=== PATIENT | female | born 1945 | race Caucasian/White ===

== ENCOUNTER → 2019-01-21 | Outpatient (CLI) | payer MEDICARE ==
[2019-01-25 15:07] LABS: HPV 16 Negative (Negative); HPV 18 Negative (Negative); HPV OTHER HR TYPES Negative (Negative)
== END | disposition home or self-care (01) ==
LOC: LAB SHORT 15:35 → LAB 15:35
PROVIDERS: Nurse Practitioner Women's Health
DX: Z12.4 Encounter for screening for malignant neoplasm of cervix (principal)
CPT/HCPCS: 87624; G0123

== ENCOUNTER → 2020-11-02 | Outpatient (CLI) | payer MEDICARE ==
[~2020-11-02] MED LIST: AMLO5 PO; ATOR20 PO; CIPR500 PO; CODACE30 PO; CYCL10; ELIQUIS5 MG PO; FERSU300; FURO40 PO; METO50ER PO; PRED20 PO; Prinivil10 MG PO; Pyridium100 MG; Vitamin D2000 UNIT PO
== END | disposition home or self-care (01) ==
LOC: LAB 11:00
DX: N30.00 Acute cystitis without hematuria (principal)
CPT/HCPCS: 87086

== ENCOUNTER 2020-11-05 07:30 | Emergency (ER) | payer MEDICARE ==
[~2020-11-05] VITALS: Ht 162.6 cm; Wt 63.5 kg
[2020-11-05] MEDS ORDERED: CIPR500 PO (07:52)
[2020-11-05] MEDS ORDERED: Pyridium100 MG (07:52)
[2020-11-05] MEDS ORDERED: CYCL10 (07:52)
[2020-11-05] MEDS ORDERED: Prinivil10 MG PO (07:53)
[2020-11-05] MEDS ORDERED: PRED20 PO (07:53)
[2020-11-05] MEDS ORDERED: AMLO5 PO (07:53)
[2020-11-05] MEDS ORDERED: METO50ER PO (07:53)
[2020-11-05] MEDS ORDERED: FURO40 PO (07:54)
[2020-11-05] MEDS ORDERED: FERSU300 (07:54)
[2020-11-05] MEDS ORDERED: Vitamin D2000 UNIT PO (07:54)
[2020-11-05] MEDS ORDERED: ATOR20 PO (07:54)
[2020-11-05] MEDS ORDERED: ELIQUIS5 MG PO (07:54)
[2020-11-05 08:25] LABS: BASOPHILS ABSOLUTE AUTO 0.01 K/mm3 (0.00-0.23); BASOPHILS PERCENT AUTO 0 % (0-2); EOSINOPHILS ABSOLUTE AUTO 0.01 K/mm3 (0.00-0.68); EOSINOPHILS PERCENT AUTO 0 % (0-6); Hematocrit 39.8 % (33.0-51.0); Hemoglobin 13.3 g/dL (11.5-16.0); IMMATURE GRAN ABSOLUTE AUTO 0.01 K/mm3 (0.00-0.10); IMMATURE GRAN PERCENT AUTO 0 % (0-1); LYMPHOCYTES ABSOLUTE AUTO 0.78 K/mm3 (0.84-5.20); LYMPHOCYTES PERCENT AUTO 10 % (21-46); MONOCYTES ABSOLUTE AUTO 0.31 K/mm3 (0.16-1.47); MONOCYTES PERCENT AUTO 4 % (4-13); Mean Corpuscular HGB 32.4 pg (26.0-34.0); Mean Corpuscular HGB Conc 33.4 g/dL (31.5-36.5); Mean Corpuscular Volume 97 fL (80-100); Mean Platelet Volume 9.6 fL (9.1-12.4); NEUTROPHILS ABSOLUTE AUTO 6.39 K/mm3 (1.96-9.15); NEUTROPHILS PERCENT AUTO 85 % (41-73); Platelet Count 233 K/mm3 (150-400); RDW Coefficient Variation 13.6 % (11.7-14.2); RDW Standard Deviation 49.1 fL (35.1-46.3); Red Blood Cell Count 4.11 M/mm3 (3.80-5.20); White Blood Cell Count 7.51 K/mm3 (4.00-11.30)
[2020-11-05 08:45] LABS: Albumin, Blood 3.9 g/dL (3.4-5.0); Albumin/Globulin Ratio 1.1 (0.8-1.8); Bilirubin, Total 0.7 mg/dL (0.1-1.0); Bun/Creatinine Ratio 19.5 (12.0-20.0); Calcium, Blood 9.4 mg/dL (8.5-10.1); Creatinine, Blood 1.59 mg/dL (0.40-1.00); Globulin, Blood 3.7 g/dL (2.2-4.0); Total Protein, Blood 7.6 g/dL (6.4-8.2)
[2020-11-05 09:05] LABS: Source, Urine Clean Catch
[2020-11-05 09:11] LABS: Appearance, Urine Hazy (Clear); Blood, Urine 2+ (Neg); Color, Urine Amber (P-Yellow); Glucose Qualitative, Urine Neg (Neg); Ketones, Urine 1+ (Neg); Leukocyte Esterase, Urine 3+ (Neg); Nitrite, Urine Pos (Neg); Protein, Urine 3+ (Neg); Urobilinogen, Urine 3+ (Normal)
[2020-11-05 09:22] LABS: Bilirubin, Urine 3+ (Neg)
[2020-11-05 09:23] LABS: White Blood Cells, Urine 25-50 /hpf (0-5)
[2020-11-05 09:24] LABS: Bacteria Many /hpf; Squamous Epithelial Cells Mod /hpf (Few)
[2020-11-05] MEDS ORDERED: CODACE30 PO (09:53)
== END 2020-11-05 10:02 | disposition home or self-care (01) ==
LOC: ER 07:30
PROVIDERS: Emergency Medicine
DX: N39.0 Urinary tract infection, site not specified (principal); M54.5 Low back pain; Z88.2 Allergy status to sulfonamides; Z79.52 Long term (current) use of systemic steroids; Z79.01 Long term (current) use of anticoagulants; Z79.899 Other long term (current) drug therapy
CPT/HCPCS: 36415; 72070; 80053; 81001; 85025; 87086; 99283-25; A9270-GY

== ENCOUNTER 2021-04-13 07:58 | Day surgery (SDC) | payer MEDICARE ==
[~2021-04-13] VITALS: Ht 165.1 cm; Wt 63.1 kg
== END 2021-04-13 10:15 | disposition home or self-care (01) ==
LOC: ORSCSDS 07:58
PROVIDERS: Podiatrist Foot & Ankle Surgery
PROC: 0L8W0ZZ Division of Left Foot Tendon, Open Approach (ICD-10-PCS; principal; 2021-04-13 09:55)
DX: M20.42 Other hammer toe(s) (acquired), left foot (principal); I10 Essential (primary) hypertension; I48.91 Unspecified atrial fibrillation; Z79.01 Long term (current) use of anticoagulants; Z87.891 Personal history of nicotine dependence; N18.9 Chronic kidney disease, unspecified; Z86.73 Personal history of transient ischemic attack (TIA), and cerebral infarction without residual deficits; Z79.899 Other long term (current) drug therapy
CPT/HCPCS: C1713; J0171; J0690; J1100; J2250; J2405; J2704; J3010; J7120

== ENCOUNTER 2021-11-05 09:19 | Inpatient (IN) | payer MEDICARE ==
[~2021-11-05] VITALS: Ht 162.6 cm; Wt 64.0 kg
[~2021-11-05 09:19] MED LIST changes: -ATOR20 PO; +ATOR40TA PO; -FERSU300; +FERSU300 PO; -FURO40 PO; +METO50 PO; -METO50ER PO; -Prinivil10 MG PO
[2021-11-05 10:28] LABS: Influenza A, PCR NEGATIVE (NEGATIVE); Influenza B, PCR NEGATIVE (NEGATIVE); Resp Syncytial Virus, PCR NEGATIVE (NEGATIVE); SARS-Cov-2 (COVID-19) PCR, MMC NEGATIVE (NEGATIVE)
[2021-11-05 10:51] LABS: BASOPHILS ABSOLUTE AUTO 0.05 K/mm3 (0.00-0.23); BASOPHILS PERCENT AUTO 1 % (0-2); EOSINOPHILS ABSOLUTE AUTO 0.11 K/mm3 (0.00-0.68); EOSINOPHILS PERCENT AUTO 2 % (0-6); Hematocrit 35.8 % (33.0-51.0); Hemoglobin 11.7 g/dL (11.5-16.0); IMMATURE GRAN ABSOLUTE AUTO 0.01 K/mm3 (0.00-0.10); IMMATURE GRAN PERCENT AUTO 0 % (0-1); LYMPHOCYTES ABSOLUTE AUTO 1.16 K/mm3 (0.84-5.20); LYMPHOCYTES PERCENT AUTO 20 % (21-46); MONOCYTES ABSOLUTE AUTO 0.45 K/mm3 (0.16-1.47); MONOCYTES PERCENT AUTO 8 % (4-13); Mean Corpuscular HGB 31.8 pg (26.0-34.0); Mean Corpuscular HGB Conc 32.7 g/dL (31.5-36.5); Mean Corpuscular Volume 97 fL (80-100); Mean Platelet Volume 10.1 fL (9.1-12.4); NEUTROPHILS PERCENT AUTO 70 % (41-73); Platelet Count 243 K/mm3 (150-400); RDW Standard Deviation 50.6 fL (35.1-46.3); Red Blood Cell Count 3.68 M/mm3 (3.80-5.20); White Blood Cell Count 5.88 K/mm3 (4.00-11.30)
[2021-11-05 11:13] LABS: Alanine Aminotransfer (ALT/SGP 23 U/L (12-78); Albumin, Blood 3.2 g/dL (3.4-5.0); Albumin/Globulin Ratio 1.1 (0.8-1.8); Alk Phos 85 U/L (50-136); Anion Gap 9 mmol/L (6-16); Aspartate Aminotrans (AST/SGOT 28 U/L (12-37); Bilirubin, Total 0.7 mg/dL (0.1-1.0); Blood Urea Nitrogen 35 mg/dL (8-24); Bun/Creatinine Ratio 25.4 (12.0-20.0); CO2, Blood 26 mmol/L (21-32); Chloride, Blood 103 mmol/L (98-108); Creatinine, Blood 1.38 mg/dL (0.40-1.00); Globulin, Blood 2.9 g/dL (2.2-4.0); Glomerular Filtration Rate 37 (60-); Glucose, Blood 109 mg/dL (70-99); Sodium, Blood 138 mmol/L (136-145); Total Protein, Blood 6.1 g/dL (6.4-8.2); Troponin I <0.015 ng/mL (0.000-0.040)
[2021-11-05 11:46] LABS: Source, Urine Voided
[2021-11-05 11:48] LABS: Appearance, Urine Clear (Clear); Bilirubin, Urine Neg (Neg); Blood, Urine Neg (Neg); Color, Urine Yellow (P-Yellow); Glucose Qualitative, Urine Neg (Neg); Ketones, Urine Neg (Neg); Leukocyte Esterase, Urine Neg (Neg); Nitrite, Urine Neg (Neg); Protein, Urine Neg (Neg); Urobilinogen, Urine NORM (Normal)
--- NOTE | 2021-11-05 16:51 | NUR ---
Echocardogram completed.
--- NOTE | 2021-11-05 18:00 | NUR ---
SHIFT SUMMARY PATIENT ADMITTED FROM ER AT 1500. PATIENT SETTLED INTO ROOM. PATIENT MEDICATED X1 WITH TYLENOL FOR HEADACHE. PATIENT DENIES NAUSEA AND SHORTNESS OF BREATH. PATIENT INDEPENDENTLY WALKS TO THE BATHROOM. PATIENT IS ON ROOM AIR. PATIENT IS EATING AND DRINKING WELL. PATIENT IS PLEASANT AND COOPERATIVE WITH CARE.
--- NOTE | 2021-11-05 21:17 | NUR ---
CALLED HOSPITALIST WAS INFORMED BY PUBLIC HEALTH NUTRITIONIST THAT QTC IS MEASURING 0.56. I SENT AN OLD EKG AND THE ADMIT EKG TO TELEMETRY FOR COMPARISON. TELEMETRY INFORMS ME THAT THE PT HAD THIS PROLONGED QTC SINCE ADMIT.
--- NOTE | 2021-11-06 05:05 | NUR ---
SHIFT SUMMARY 76 YR f ADMITTED ON 11/05/21 FOR PNEUMONIA IN THE LOWER LUNGS AND a new dx of diastolic chf. sHE IS ON TELE (SINUS RYTHM) AND RA. QT WAVE HAS BEEN LONG SINCE ADMIT (0.56) AND IS BEING WATCHED BY TELE MINITOR. pT COMPLAINED OF hEADACHE AND WAS GIVEN tYLENOL PER jan AT 2153. iv RIGHT AC, SALINE LOCKED. oTHER THAN C/O TSANG, PT HAS BEEN RESTING COMFORTABLY AND CALLS FOR HELP APPROPRIATELY.
[2021-11-06 05:18] LABS: BASOPHILS ABSOLUTE AUTO 0.06 K/mm3 (0.00-0.23); BASOPHILS PERCENT AUTO 1 % (0-2); EOSINOPHILS ABSOLUTE AUTO 0.19 K/mm3 (0.00-0.68); EOSINOPHILS PERCENT AUTO 4 % (0-6); Hematocrit 36.9 % (33.0-51.0); Hemoglobin 12.2 g/dL (11.5-16.0); IMMATURE GRAN ABSOLUTE AUTO 0.01 K/mm3 (0.00-0.10); IMMATURE GRAN PERCENT AUTO 0 % (0-1); LYMPHOCYTES ABSOLUTE AUTO 1.33 K/mm3 (0.84-5.20); LYMPHOCYTES PERCENT AUTO 25 % (21-46); MONOCYTES PERCENT AUTO 9 % (4-13); Mean Corpuscular HGB 32.1 pg (26.0-34.0); Mean Corpuscular HGB Conc 33.1 g/dL (31.5-36.5); Mean Corpuscular Volume 97 fL (80-100); Mean Platelet Volume 9.8 fL (9.1-12.4); NEUTROPHILS ABSOLUTE AUTO 3.34 K/mm3 (1.96-9.15); NEUTROPHILS PERCENT AUTO 62 % (41-73); Platelet Count 208 K/mm3 (150-400); RDW Coefficient Variation 14.1 % (11.7-14.2); RDW Standard Deviation 49.7 fL (35.1-46.3); White Blood Cell Count 5.43 K/mm3 (4.00-11.30)
[2021-11-06 06:07] LABS: Bun/Creatinine Ratio 24.7 (12.0-20.0); Calcium, Blood 9.3 mg/dL (8.5-10.1); Creatinine, Blood 1.7 mg/dL (0.40-1.00); Potassium, Blood 3.8 mmol/L (3.5-5.5)
--- NOTE | 2021-11-06 18:31 | NUR ---
PT A/O. VITALS STABLE FOR SHIFT. PAIN REPORTED AROUND 1200. TREATED PAIN PER EMAR.NO ACUTE CHANGES. ALL MED GIVEN. REPORT GIVEN TO NEONATAL ICU COORDINATOR NURSE
--- NOTE | 2021-11-06 19:07 | NUR ---
PT HAD A BUNDLE FLIP PER SET STAFF FITTER. CHECKED ON PATIENT- PT RESTING IN BED, SPOKE WITH PT. PATIENT DENIES ANY CHEST PAIN/PAIN/DISCOMFORT. CALL PLACED TO DR ROMEO WHO STATED IT IS OKAY FOR NOW. PROVIDER ASKED TO CALL TONIGHT IF PATIENT BECOMES BRADYCARDIC. SMOKE JUMPER NURSE MADE AWARE. SMOKE JUMPER NURSE WILL CONTINUE TO MONITOR PATIENT. SET STAFF FITTER CALL AROUND 1905. STRIP PLACED IN PATIENT CHART
--- NOTE | 2021-11-07 04:33 | NUR ---
SHIFT SUMMARY 76 YR f ADMITTED ON 11/06/21 FOR NEW DX OF DIASTOLIC CHF, AND BILATERAL LOWER LUNG PNEUMONIA. pER TELE MONITOR PT HAS A PROLONGED Q-R, AND Q-T COMPLEX, BUNDLE FLIP, AND HR OF 91. SHE IS A FULL CODE. bilingual operator TO BE NOTIFIED IF HR GOES LIBBY. OUTPATIENT REFERAL W/ CASEWORK SPECIALIST IN 1-2 WEEKS. pT C/O HEADACHE AND WAS GIVEN TYLENOL PER MAR ORDERS. THIS REDUCED HER PAIN TO ZERO.
[2021-11-07 06:15] LABS: Albumin, Blood 2.9 g/dL (3.4-5.0); Anion Gap 12 mmol/L (6-16); Blood Urea Nitrogen 41 mg/dL (8-24); Bun/Creatinine Ratio 25.6 (12.0-20.0); CO2, Blood 25 mmol/L (21-32); Calcium, Blood 9.1 mg/dL (8.5-10.1); Chloride, Blood 100 mmol/L (98-108); Glomerular Filtration Rate 31 (60-); Glucose, Blood 86 mg/dL (70-99); Phosphorus, Blood 4.4 mg/dL (2.5-4.9); Potassium, Blood 4.2 mmol/L (3.5-5.5); Sodium, Blood 137 mmol/L (136-145)
[2021-11-07] MEDS ORDERED: FURO40 PO (13:56)
[2021-11-07] MEDS ORDERED: Prinivil10 MG PO (13:56)
--- NOTE | 2021-11-07 18:13 | NUR ---
PATIENT A/O. VITALS STABLE. PT AMBULKATES WELL TO BATHROOM/ROOM. NO SIGNS OF ACUTE CHANGES. NO SIGNS OF DISTRESS. MEDS GIVEN PER EMAR. NO REPORTED PAIN FOR SHIFT. CHEST XRAY REVEALED CHRONIC CHANGES IN BOTH LUNGS. SMALL PLEAURAL EFFUSIONS. ELEVATED BNP. PT HAD A GOOD SHIFT. VERY PLEASANT AND COOPERATIVE
--- NOTE | 2021-11-08 03:40 | NUR ---
SHIFT SUMMARY VSS. A&O X 4. PT PLEASANT AND COOPERATIVE WITH CARE. PT AMBULATES IN ROOM AND TO RESTROOM. MEDICATED FOR PAIN PER EMAR. ON ROOM AIR. PT ON TELE, AFIB 94. NO ACUTE CHANGES. RN TO CALL CELLOPHANE BAG MACHINE OPERATOR IF PT BECOMES BRADYCARDIC. [phone]. CALL LIGHT WITHIN REACH AND WILL CONTINUE TO MONITOR UNTIL DAY SHIFT ARRIVES AND TAKES OVER CARE.
[2021-11-08 06:45] LABS: Albumin, Blood 2.9 g/dL (3.4-5.0); Anion Gap 9 mmol/L (6-16); Blood Urea Nitrogen 38 mg/dL (8-24); Bun/Creatinine Ratio 24.8 (12.0-20.0); CO2, Blood 26 mmol/L (21-32); Calcium, Blood 8.7 mg/dL (8.5-10.1); Chloride, Blood 101 mmol/L (98-108); Creatinine, Blood 1.53 mg/dL (0.40-1.00); Glomerular Filtration Rate 33 (60-); Glucose, Blood 88 mg/dL (70-99); Phosphorus, Blood 4.2 mg/dL (2.5-4.9); Potassium, Blood 3.9 mmol/L (3.5-5.5); Sodium, Blood 136 mmol/L (136-145)
--- NOTE | 2021-11-08 19:22 | NUR ---
PT REPORTED PAIN. TREATED PAIN PER MAR. NO ACUTE CHANGES. C/O OF SPASMS. TREATED WITH PAIN MED PER MAR. AMBULATES WELL TO ROOM/BTHROOM. POSSIBLE DISCHARGE TOMORROW
--- NOTE | 2021-11-09 04:21 | NUR ---
PATIENT HAS HAD AN UNEVENTFUL NIGHT. VITALS REMAIN STABLE AND WNL. NO ACUTE CHANGES TO REPORT OF AT THIS TIME. CALL LIGHT WITHIN REACH.
[2021-11-09] MEDS ORDERED: METO25ER PO (11:17)
[2021-11-09] MEDS ORDERED: HYDR1TAB94 PO (11:18)
--- NOTE | 2021-11-09 16:27 | NUR ---
PT A/O X4. VERY PLEASANT AND COOPERATIVE WITH CARE.VSS.NO ACUTE CHANGES NOTED.NO SIGNS OF DISTRESS. TREATED PAIN PER EMAR. AROUND 1535- PT IS DISCHARGED TO HOME.DISCHARGE INSTRUCTIONS PROVIDED. CONFIRMED PHARMACY, REVIEWED ALL MEDS, WRITTEN PRESCRIPTION WITH PATIENT.INFORMED PT THAT SHE WILL BE CONTACTED FRIDAY FOR ZIO PATCH PLACEMENT.PT VERBALIZED UNDERSTANDING.TELE REMOVED,IV REMOVED.
== END 2021-11-09 15:35 | disposition home or self-care (01) | DRG 292 ==
LOC: ER 09:19 → MEDS 09:20 → ERHOLD 09:20 → MEDS 14:55
PROVIDERS: Emergency Medicine; Physician Assistant; ADMIT Family Medicine
DX: I50.41 Acute combined systolic (congestive) and diastolic (congestive) heart failure (principal); I42.8 Other cardiomyopathies; Z20.822 Contact with and (suspected) exposure to COVID-19; I12.9 Hypertensive chronic kidney disease with stage 1 through stage 4 chronic kidney disease, or unspecified chronic kidney disease; N18.30 Chronic kidney disease, stage 3 unspecified; I48.91 Unspecified atrial fibrillation; I08.1 Rheumatic disorders of both mitral and tricuspid valves; Z86.73 Personal history of transient ischemic attack (TIA), and cerebral infarction without residual deficits; Z87.891 Personal history of nicotine dependence; Z88.2 Allergy status to sulfonamides; Z79.01 Long term (current) use of anticoagulants; Z79.899 Other long term (current) drug therapy
CPT/HCPCS: 0241U; 36415; 71045; 80048; 80053; 80069; 81003; 82947; 83880; 84145; 84484; 85025; 93005; 93010; 93306; 94760; 96365; 96375; 96376; 99285-25; A9270; G0378; J0696; J1940

== ENCOUNTER → 2022-02-07 | Outpatient (CLI) | payer MEDICARE ==
[~2022-02-07] MED LIST changes: +FURO40 PO; +HYDR1TAB94 PO; +METO25ER PO; +Prinivil10 MG PO
== END | disposition home or self-care (01) ==
LOC: LAB SHORT 11:45 → LAB 11:45
DX: L02.32 Furuncle of buttock (principal)
CPT/HCPCS: 87070; 87075; 87205

== ENCOUNTER 2022-05-18 07:03 | Emergency (ER) | payer MEDICARE ==
[~2022-05-18] VITALS: Ht 165.1 cm; Wt 75.8 kg
[2022-05-18 07:57] LABS: BASOPHILS ABSOLUTE AUTO 0.04 K/mm3 (0.00-0.23); BASOPHILS PERCENT AUTO 1 % (0-2); EOSINOPHILS ABSOLUTE AUTO 0.06 K/mm3 (0.00-0.68); EOSINOPHILS PERCENT AUTO 1 % (0-6); Hematocrit 41.1 % (33.0-51.0); Hemoglobin 13.5 g/dL (11.5-16.0); IMMATURE GRAN ABSOLUTE AUTO 0.01 K/mm3 (0.00-0.10); IMMATURE GRAN PERCENT AUTO 0 % (0-1); LYMPHOCYTES ABSOLUTE AUTO 1.23 K/mm3 (0.84-5.20); LYMPHOCYTES PERCENT AUTO 21 % (21-46); MONOCYTES ABSOLUTE AUTO 0.51 K/mm3 (0.16-1.47); MONOCYTES PERCENT AUTO 9 % (4-13); Mean Corpuscular HGB 31.8 pg (26.0-34.0); Mean Corpuscular HGB Conc 32.8 g/dL (31.5-36.5); Mean Corpuscular Volume 97 fL (80-100); Mean Platelet Volume 9.6 fL (9.1-12.4); NEUTROPHILS ABSOLUTE AUTO 4.12 K/mm3 (1.96-9.15); NEUTROPHILS PERCENT AUTO 69 % (41-73); Platelet Count 248 K/mm3 (150-400); RDW Coefficient Variation 13.6 % (11.7-14.2); RDW Standard Deviation 48.3 fL (35.1-46.3); Red Blood Cell Count 4.24 M/mm3 (3.80-5.20); White Blood Cell Count 5.97 K/mm3 (4.00-11.30)
[2022-05-18 08:15] LABS: Albumin, Blood 3.3 g/dL (3.4-5.0); Albumin/Globulin Ratio 1.1 (0.8-1.8); Bilirubin, Total 0.7 mg/dL (0.1-1.0); Bun/Creatinine Ratio 20.1 (12.0-20.0); Creatinine, Blood 1.39 mg/dL (0.40-1.00); Potassium, Blood 4.5 mmol/L (3.5-5.5); Total Protein, Blood 6.3 g/dL (6.4-8.2)
[2022-05-18 08:50] LABS: Influenza A, PCR NEGATIVE (NEGATIVE); Influenza B, PCR NEGATIVE (NEGATIVE); Resp Syncytial Virus, PCR NEGATIVE (NEGATIVE); SARS-Cov-2 (COVID-19) PCR, MMC NEGATIVE (NEGATIVE)
== END 2022-05-18 10:42 | disposition home or self-care (01) ==
LOC: ER 07:03
PROVIDERS: Emergency Medicine
DX: I11.0 Hypertensive heart disease with heart failure (principal); I50.9 Heart failure, unspecified; I48.91 Unspecified atrial fibrillation; Z20.822 Contact with and (suspected) exposure to COVID-19; Z86.73 Personal history of transient ischemic attack (TIA), and cerebral infarction without residual deficits; Z88.2 Allergy status to sulfonamides; Z87.891 Personal history of nicotine dependence; Z79.899 Other long term (current) drug therapy; Z79.01 Long term (current) use of anticoagulants
CPT/HCPCS: 0241U; 36415; 71045; 80053; 83880; 84484; 85025; 93005; 93010; J1885; J1940

== ENCOUNTER 2022-06-03 07:47 | Emergency (ER) | payer MEDICARE ==
[~2022-06-03] VITALS: Ht 157.5 cm; Wt 61.2 kg
[2022-06-03 10:16] LABS: Source, Urine Clean Catch
[2022-06-03 10:24] LABS: Appearance, Urine Clear (Clear); Bilirubin, Urine Neg (Neg); Blood, Urine 1+ (Neg); Color, Urine Yellow (P-Yellow); Glucose Qualitative, Urine Neg (Neg); Ketones, Urine Neg (Neg); Leukocyte Esterase, Urine Neg (Neg); Nitrite, Urine Neg (Neg); Protein, Urine 1+ (Neg); Urobilinogen, Urine NORM (Normal)
[2022-06-03 10:34] LABS: Bacteria Rare /hpf; Red Blood Cells, Urine 0-2 /hpf (0-2); Squamous Epithelial Cells Rare /hpf (Few); White Blood Cells, Urine 0-2 /hpf (0-5)
[2022-06-03] MEDS ORDERED: Voltaren100 GM TOP (11:02)
[2022-06-03] MEDS ORDERED: Robaxin750 MG PO (11:02)
== END 2022-06-03 11:21 | disposition home or self-care (01) ==
LOC: ER 07:47
PROVIDERS: Physician Assistant
DX: M62.830 Muscle spasm of back (principal); I10 Essential (primary) hypertension; Z79.899 Other long term (current) drug therapy; Z79.01 Long term (current) use of anticoagulants; Z86.73 Personal history of transient ischemic attack (TIA), and cerebral infarction without residual deficits; Z87.891 Personal history of nicotine dependence
CPT/HCPCS: 72100; 81001; A9270

== ENCOUNTER 2022-06-30 07:10 | Inpatient (IN) | payer MEDICARE | END 2022-07-05 12:04 | disposition home health service (06) | DRG 683 | LOC: ER 07:10 → PCU 11:47 → MEDS 13:49 | PROVIDERS: ADMIT Internal Medicine | DX: N17.9 Acute kidney failure, unspecified (principal); E87.1 Hypo-osmolality and hyponatremia; I13.0 Hypertensive heart and chronic kidney disease with heart failure and stage 1 through stage 4 chronic kidney disease, or unspecified chronic kidney disease; I50.42 Chronic combined systolic (congestive) and diastolic (congestive) heart failure; I48.20 Chronic atrial fibrillation, unspecified; I95.9 Hypotension, unspecified; E86.1 Hypovolemia; Z66 Do not resuscitate; Z51.5 Encounter for palliative care; N18.32 Chronic kidney disease, stage 3b; T50.1X5A Adverse effect of loop [high-ceiling] diuretics, initial encounter; S09.90XA Unspecified injury of head, initial encounter; W18.30XA Fall on same level, unspecified, initial encounter; Z88.2 Allergy status to sulfonamides; Z79.899 Other long term (current) drug therapy; Z79.811 Long term (current) use of aromatase inhibitors; Z79.02 Long term (current) use of antithrombotics/antiplatelets; Z86.73 Personal history of transient ischemic attack (TIA), and cerebral infarction without residual deficits; Z79.891 Long term (current) use of opiate analgesic; Z87.891 Personal history of nicotine dependence; Z98.890 Other specified postprocedural states ==

== ENCOUNTER 2022-07-06 08:32 | Inpatient (IN) | payer MEDICARE ==
[~2022-07-06] VITALS: Ht 165.1 cm; Wt 63.4 kg
[~2022-07-06 08:32] MED LIST changes: +LOSA50 PO; +Robaxin750 MG PO; +THERA-D2000 UNIT PO; +TORSE20 PO; -Vitamin D2000 UNIT PO; +Voltaren100 GM TOP
[2022-07-06 09:06] LABS: BASOPHILS ABSOLUTE AUTO 0.04 K/mm3 (0.00-0.23); BASOPHILS PERCENT AUTO 1 % (0-2); EOSINOPHILS ABSOLUTE AUTO 0.04 K/mm3 (0.00-0.68); EOSINOPHILS PERCENT AUTO 1 % (0-6); Hematocrit 41.9 % (33.0-51.0); Hemoglobin 13.4 g/dL (11.5-16.0); IMMATURE GRAN ABSOLUTE AUTO 0.02 K/mm3 (0.00-0.10); IMMATURE GRAN PERCENT AUTO 0 % (0-1); LYMPHOCYTES ABSOLUTE AUTO 2.18 K/mm3 (0.84-5.20); LYMPHOCYTES PERCENT AUTO 34 % (21-46); MONOCYTES ABSOLUTE AUTO 0.36 K/mm3 (0.16-1.47); MONOCYTES PERCENT AUTO 6 % (4-13); Mean Corpuscular HGB 31.5 pg (26.0-34.0); Mean Platelet Volume 9.8 fL (9.1-12.4); NEUTROPHILS ABSOLUTE AUTO 3.74 K/mm3 (1.96-9.15); NEUTROPHILS PERCENT AUTO 59 % (41-73); NRBC ABSOLUTE 0.04 K/mm3 (0.00-0.02); NRBC Auto 0.6 /100 WBC (0.0-0.2); Platelet Count 260 K/mm3 (150-400); Red Blood Cell Count 4.25 M/mm3 (3.80-5.20); White Blood Cell Count 6.38 K/mm3 (4.00-11.30)
[2022-07-06 09:15] LABS: Mean Corpuscular Volume 99 fL (80-100)
[2022-07-06 09:32] LABS: Albumin, Blood 3.3 g/dL (3.4-5.0); Bilirubin, Total 1.1 mg/dL (0.1-1.0); Calcium, Blood 9.7 mg/dL (8.5-10.1); Creatinine, Blood 2.24 mg/dL (0.40-1.00); Globulin, Blood 3.2 g/dL (2.2-4.0); Total Protein, Blood 6.5 g/dL (6.4-8.2)
--- NOTE | 2022-07-06 14:30 | NUR ---
INITIAL ASSESSMENT PATIENT ADMITTED TO UNIT AT 1352. PATIENT [place]. PATIENT ALERT AND ORIENTED EXCEPT TO YEAR. PATIENT WEAK. PATIENT NORMALLY ABLE TO WALK AROUND HOME WITHOUT ANY ASSISTIVE DEVICES. PATIENT STATES THAT SHE HAS NOT BEEN FEELING WELL FOR AROUND 6 MONTHS. PATIENT STATES THAT SHE WAS DISCHARGED TO HOME YESTERDAY AND "WAS NOT EVEN ABLE TO WALK AT DISCHARGE". PATIENT STATES SHE HAS CHRONIC, INTERMITTENT R SIDE/ BACK SPASMS. PATIENT STATES IT IS MANAGEABLE AT THIS TIME WITHOUT MEDICATION. PATIENT AFEBRILE. PATIENT SATTING 90% AND GREATER ON RA. LUNGS CLEAR THROUGHOUT. PATIENT HAS OCCASIONAL, NONPRODUCTIVE COUGH. PATIENT ON 4-5 L NC IN ER. PATIENT'S LIPS CYANOTIC. NAIL BEDS DUSKY. CAP REFILL LESS THAN 3 SECONDS. PATIENT IN A. FIB, HR 1-TEENS TO 130S. SBP 70S TO 90S. AMIODARONE DRIP INFUSING AT 1 MG/ MINUTE. LEVOPHED ON EMAR IF NEEDED. GI WNL. MONTANEZ PLACE IN ER; PATENT AND DRAINING MINIMAL AMOUNT OF YELLOW COLORED URINE. SKIN COOL AND PALE. PATIENT ORIENTED TO UNIT, ROOM AND CALL LIGHT. BED LOW, CALL LIGHT IN REACH. WILL CONTINUE TO MONITOR PATIENT FREQUENTLY THROUGHOUT SHIFT.
--- NOTE | 2022-07-06 16:00 | NUR ---
PATIENT AFEBRILE. NO COMPLAINTS OF PAIN. HR LOW 100S TO 1-TEENS. SBP 80S TO 90S. AMIO REMAINS AT 1 MG/ MINUTE. URINE OUTPUT SCANT. NO OTHER ACUTE CHANGES TO NOTE ON AT THIS TIME. WILL CONTINUE TO MONITOR.
--- NOTE | 2022-07-06 17:23 | NUR ---
CALLED DR. HOLMAN AND INFORMED THAT PATIENT HAS ONLY HAD 15 MLS OF URINE OUPUT FROM MONTANEZ SINCE ADMIT TO ICU. INFORMED THAT PATIENT IS NOT REALLY DRINKING, THAT NO MAINTENANCE RUNNING, BUT THAT BNP HIGH. INFORMED THAT THERE IS AN 1800 DOSE OF LASIX ORDERED. NO ORDERS RECEIVED AT THIS TIME.
[2022-07-06 18:27] LABS: International Normalized Ratio 1.75; Prothrombin Time Results 17.7 Sec (9.7-11.5)
--- NOTE | 2022-07-06 19:06 | NUR ---
DR. HOLMAN UPDATED ON PATIENT STATUS. INFORMED THAT PATIENT HAVING COMPLAINTS OF NAUSEA AND FEELING DIAPHORETIC. INFORMED THAT ONLY 20 MLS OF URINE OUTPUT THIS WHOLE SHIFT DESPITE PATIENT GETTING 60 MG IV LASIX AROUND 1800. INFORMED THAT MAPS HAVE BEEN 65 AND GREATER BUT THAT PULSE PRESSURES HAVE BEEN NARROW. INFORMED THAT PATIENT REMAINS PALE, CYANOTIC LIPS AND LETHARGIC. ASKED ABOUT DOBUTAMINE ECHO EF 37%. DR. HOLMAN SPOKE TO DR. ZENG AND IT WAS DECIDED TO CONTINUE TO MONITOR. NO ORDERS RECEIVED EXCEPT FOR PRN ZOFRAN. DR. BOLAÑOS WALKED INTO UNIT AND UPDATED WITH ALL THE SAME INFORMATION THAT DR. HOLMAN AND KARRI UPDATED WITH. INFORMED THAT PRN ZOFRAN ORDERED BUT NO OTHER ORDERS RECEIVED. DR. BOLAÑOS STATED TO ORDER DOBUTAMINE AND CONTINUE AT 2 MCG/ KG/ MINUTE. DR. BOLAÑOS STATED TO CALL HER AT 2200 WITH URINE OUTPUT. YUDI, REHABILITATION SERVICES COUNSELOR RN, UPDATED WITH INFORMATION.
--- NOTE | 2022-07-06 19:50 | NUR ---
SHIFT SUMMARY PATIENT SLEPT ON AND OFF. PATIENT REMAINS MOSTLY ORIENTED. PATIENT REMAINS WEAK BUT ABLE TO MOVE ALL EXTREMITIES. PATIENT REMAINS AFEBRILE. PATIENT DID NOT REQUIRE ANY PAIN MEDICATIONS FOR CHRONIC MUSCLE SPASM IN R SIDE AND BACK. PATIENT CONTINUES TO BE PALE COLOR, SKIN COOL TO TOUCH AND LIPS AND FINGERS/ TOES DUSKY. PATIENT LETHARGIC. PATIENT HAS REMAINED SATTING 90% AND GREATER ON RA. ONLY ABLE TO GET SAT READING ON FOREHEAD. PATIENT HAS REMAINED IN A. FIB, HR 80S TO 130S. SBP 70S TO 120S. PATIENT REMAINS ON AMIODARONE AT 1 MG/ MINUTE. MAPS HAVE BEEN 65 AND GREATER SO LEVOPHED HAS NOT BEEN STARTED. PATIENT REMAINS EDEMATOUS TO BILAT FEET AND BLES. PATIENT DID NOT HAVE APPETITE THIS SHIFT. NO BM THIS SHIFT. MONTANEZ INSERTED IN ER. PATIENT RECEIVED 60 MG IV LASIX THIS SHIFT AND ONLY HAD 20 MLS OF YELLOW COLORED URINE OUT FROM MONTANEZ. TROPONIN INCREASED FROM 133 TO 668. HEPARIN BOLUS GIVEN AND DRIP STARTED AT 15 UNITS/ KG/ HOUR. DR. BOLAÑOS IN TO SEE PATIENT AT END OF SHIFT AND ORDERED FOR DOBUMATINE AND TO CALL HER AT 2200 WITH URINE OUTPUT RESULTS. MED LIST INCOMPLETE; SISTER BROUGHT IT AT END OF SHIFT AND NIGHT RN INFORMED THAT ON COMPUTER IN ROOM. REPORT GIVEN TO ASSUMING COPING MACHINE ASSEMBLER NURSE AT 1920.
--- NOTE | 2022-07-06 20:45 | NUR ---
Assumed care. Report received from dinh IRWIN. Pt resting in bed ATT. Dr. Purvis at bedside. Heparin infusing at 15 units/kg/hr, amiodarone infusing at 1 mg/min. Order obtained from Dr. Purvis for dobutamine at 2 mcg/kg/min. Anne catheter in place, no urine output noted, Dr. Purvis to be notified if no output by 1000. VS stable, will continue to monitor.
[2022-07-07 05:57] LABS: Albumin, Blood 2.6 g/dL (3.4-5.0); Bilirubin, Total 1.4 mg/dL (0.1-1.0); Bun/Creatinine Ratio 21.4 (12.0-20.0); Calcium, Blood 8.7 mg/dL (8.5-10.1); Creatinine, Blood 2.8 mg/dL (0.40-1.00); Globulin, Blood 2.5 g/dL (2.2-4.0); Potassium, Blood 5.3 mmol/L (3.5-5.5); Total Protein, Blood 5.1 g/dL (6.4-8.2)
--- NOTE | 2022-07-07 06:17 | NUR ---
Summary. Pt rested in bed throughout shift. A&Ox4, on room air. Heparin infusing at 12 units/kg/hr, rate managed by pharmacy during shift. Amiodarone infusing at 0.5 mg/min, dobutamine infusing at 2 mcg/kg/hr. Anne catheter in place, 45 mls out this shift. Dr. Purvis notified of low urine output during shift, order obtained for one time 1mg dose of bumex. Pt maintained bp map above 60 thoughout shift, vs otherwise stable. See shift assessment for further details.
--- NOTE | 2022-07-07 08:00 | NUR ---
INITIAL ASSESSMENT PATIENT SLEEPING IN BED UPON ENTERING ROOM. PATIENT WAKES EASILY TO VOICE. PATIENT [place]. PATIENT ABLE TO ANSWER ALL ORIENTATIONS CORRECTLY, EXCEPT FOR YEAR. PATIENT WEAK BUT ABLE TO MOVE ALL EXTREMITIES. PATIENT AFEBRILE. PATIENT DENIES PAIN. PATIENT SATTING 90% AND GREATER ON RA. LUNGS CLEAR IN UPPER LOBES AND DIMINISHED IN LOWER LOBES. PATIENT HAS OCCASIONAL, NONPRODUCTIVE COUGH. PATIENT IN A. FIB, HR 80S TO 90S. SBP 90S TO LOW 100S. 2+ EDEMA NOTED TO BLES, 1+ EDEMA NOTED TO BILAT FEET. AMIODARONE INFUSING AT 0.5 MG/ MINUTE, DOBUTAMINE AT 2 MCG/ KG/ MINUTE, HEPARIN AT 12 UNITS/ KG/ HOUR. GI WNL. MONTANEZ DRAINING SCANT AMOUNT OF YELLOW COLORED URINE. PATIENT RECEIVING SCHEDULED BUMEX. SCATTERED BRUISING NOTED T/O. PATIENT PALE BUT CYANOSIS IN LIPS, FINGERS AND TOES MUCH IMPROVED FROM YESTERDAY. YESTERDAY SKIN COOL; TODAY TOES/ SKIN WARM. PATIENT STATES THAT SHE HAS FELT BETTER SINCE DOBUTAMINE STARTED. BED LOW, CALL LIGHT IN REACH. WILL CONTINUE TO MONITOR PATIENT FREQUENTLY THROUGHOUT SHIFT.
--- NOTE | 2022-07-07 09:05 | NUR ---
DR. SQUIRES UPDATED ON PATIENT STATUS. INFORMED THAT MED REC UPDATED THIS AM. INFORMED THAT TROPONIN IMPROVING. INFORMED THAT KIDNEY LABS AND LIVER LABS WORSENING. INFORMED THAT PATIENT STARTED ON DOBUMATINE DRIP LAST NIGHT AND THAT PATIENT STATES SHE FEELS BETTER AND SHE ALSO LOOKS BETTER. INFORMED THAT DR. ROMEO CHANGED LASIX TO BUMEX LAST NIGHT. INFORMED THAT PATIENT ONLY HAD 45 MLS OF URINE OUTPUT ON JAVA DEVELOPER ARCHITECT. INFORMED THAT AMIODARONE DRIP WILL BE COMPLETE AROUND [address] ROMEO MENTIONED SOMETHING IN HER NOTE ABOUT STARTING ON PO AMIO. INFORMED THAT ECHO ORDERED YESTERDAY WAS CANCELLED AND LAST ECHO WAS PERFORMED ON 03/19/22. NO ORDERS RECEIVED AT THIS TIME.
--- NOTE | 2022-07-07 09:36 | NUR ---
DR. BOLAÑOS UPDATED ON PATIENT STATUS. INFORMED THAT TROPONIN LAB DECREASING. INFORMED THAT KIDNEY AND LIVER LABS WORSENING. INFORMED THAT INFORMED THAT PATIENT ONLY HAD OUT 45 MLS OF URINE OUTPUT ON DOUBLE SPINDLE SHAPER OPERATOR. INFORMED THAT DR. TAI IN UNIT THIS AM AND SAW PATIENT. INFORMED THAT DR. TAI IS PUTTING ORDERS IN AT THIS TIME. INFORMED THAT DOBUTAMINE DRIP REMAINS INFUSING AT 2 MCG/ KG/ MINUTE AND THAT PATIENT STATES SHE LOOKS BETTER AND FEELS BETTER. INFORMED THAT AMIODARONE DRIP WILL BE COMPLETE AROUND 1430. INFORMED THAT ECHO ORDER FROM YESTERDAY CANCELLED AND LAST ECHO PERFORMED LOOKS TO HAVE BEEN DONE ON 03/19/22. ORDERED TO START AMIO PO.
--- NOTE | 2022-07-07 12:15 | NUR ---
PATIENT AFEBRILE. HR IN THE 90S. SBP 90S TO LOW 100S. HEPARIN DRIP DC'D. NO OTHER ACUTE CHANGES TO NOTE ON AT THIS TIME. NO COMPLAINTS OF PAIN. WILL CONTINUE TO MONITOR.
[2022-07-07 15:26] LABS: Bun/Creatinine Ratio 20.1 (12.0-20.0); Calcium, Blood 8.2 mg/dL (8.5-10.1); Creatinine, Blood 3.03 mg/dL (0.40-1.00); Potassium, Blood 4.8 mmol/L (3.5-5.5)
--- NOTE | 2022-07-07 15:58 | NUR ---
PATIENT AFEBRILE. HR 80S TO 90S. SBP 90S TO LOW 100S. NO COMPLAINTS AT THIS TIME. NO ACUTE CHANGES TO NOTE ON. WILL CONTINUE TO MONITOR.
--- NOTE | 2022-07-07 18:35 | NUR ---
SHIFT SUMMARY PATIENT SLEPT ON AND OFF THROUGHOUT SHIFT. PATIENT LETHARGIC BUT MORE PEPPY THAN YESTERDAY. PATIENT STATES HE FEELS BETTER OVERALL TODAY. PATIENT REMAINS ALERT AND ORIENTED. PATIENT AFEBRILE. PATIENT REMAINED SATTING 90% AND GREATER ON RA. PATIENT REMAINED IN A. FIB, HR 80S TO LOW 100S. SBP 80S TO LOW 100S. LEGS AND FEET REMAIN EDEMATOUS. AMIO DRIP STOPPED THIS SHIFT AND PO AMIO STARTED. ELIQUIS STARTED THIS SHIFT AND HEPARIN DRIP STOPPED THIS SHIFT. DOBUTAMINE REMAINS AT SET RATE OF 2 MCG/ KG/ MINUTE. NO BM THIS SHIFT. PATIENT HAS POOR APPETITE BUT TRIES TO EAT A LITTLE AT EACH MEAL. PATIENT RECEIVING SCHEDULED BUMEX. MONTANEZ DRAINED 332 MLS OF YELLOW COLORED URINE. 24 HOUR URINE COLLECTION IN PROGRESS. SKIN PALE; MUCH LESS CYANOTIC AND DUSKY THAN YESTERDAY. 3RD TOE ON LEFT FOOT REDDENED AND WARM; PATIENT STATES THAT SHE GETS GOUT IN HER TOES BUT WAS TAKEN OFF GOUT MEDICATION QUITE A WHILE AGO BY DOCTOR. PATIENT REPOSITIONED Q2H. DR. TAI SAW PATIENT THIS AM AND STARTED ON LOKELMA, ALBUMIN, NAC AND SODIUM BICARB. PARTIAL ECHO COMPLETED THIS SHIFT. COMPLETE BED BATH PERFORMED THIS SHIFT. MED REC COMPLETED. PATIENT HAS NO COMPLAINTS AT THIS TIME. AND SISTER IN TO VISIT TODAY. BED LOW, CALL LIGHT IN REACH. REPORT WILL BE GIVEN TO ASSUMING ADULT PROBATION OFFICER NURSE SHORTLY.
--- NOTE | 2022-07-07 19:00 | NUR ---
Assumed care. Report received from dinh IRWIN. Pt resting in bed ATT, A&O, on RA. Dobutamine infusing at 2 mcg/kg/min. 24hr urine collection in process, painter catheter in place. VS stable, no acute needs at this time, will continue to monitor.
[2022-07-08 04:48] LABS: Albumin, Blood 2.7 g/dL (3.4-5.0); Albumin/Globulin Ratio 1.3 (0.8-1.8); Bilirubin, Total 1.2 mg/dL (0.1-1.0); Calcium, Blood 7.8 mg/dL (8.5-10.1); Creatinine, Blood 3.25 mg/dL (0.40-1.00); Globulin, Blood 2.1 g/dL (2.2-4.0); Potassium, Blood 4.3 mmol/L (3.5-5.5); Total Protein, Blood 4.8 g/dL (6.4-8.2)
--- NOTE | 2022-07-08 06:23 | NUR ---
Shift summary. Pt rested in bed throughout shift. Dobutamine infusing at 2 mcg/kg/min. No acute events overnight, vs stable. See shift assessment for further details. Will continue to monitor and report off to dayshift RN.
--- NOTE | 2022-07-08 08:00 | NUR ---
PT IS A&OX4. SHE REPORTS PAIN FROM THE THIRD TOE ON HER LEFT FOOT. SHE STATES THAT IT IS FROM "GOUT." PT REQUESTS TO HAVE THE BLANKETS LIFTED OFF OF HER FEET-REQUEST GRANTED. ECG SHOWS AFIB WITH RATE 100-110'S. SBP 90-110'S. DP/PT PULSES PAPABLE. 1-2+ PITTING EDEMA TO LOWER EXTREMITIES. LUNGS DIMINISHED IN THE BASES. SATS>90% ON RA. NO NOTED COUGH. PT STATES THAT SHE DOES HAVE "MILD" SOB WITH EXERTION/REPOSITIONING. NO GI DISTRESS. PT REPORTS POOR APPETITE. MONTANEZ WITH YELLOW URINE NOTED TO UROMETER. 24 HOUR URINE IN PROGRESS. BOTH MONTANEZ AND 24 HOUR URINE ON ICE. SKIN IS PALE AND FRAIL, BUT NO NOTED SKIN BREAKDOWN. SCATTERED ECCHYMOSIS NOTED. CALL LIGHT WITHIN REACH.
[2022-07-08 11:01] LABS: Protein, Urine Quantitative 25.1 mg/dL (0.0-11.9)
--- NOTE | 2022-07-08 12:00 | NUR ---
PT DENIES COMPLAINTS. PT SPOUSE AND SISTER AT BEDSIDE. UPDATE GIVEN. ECG CONTINUES AFIB WITH RATE 100-110'S. NO CHEST PAIN OR SOB. SBP 90-110'S. DOBUTREX CONTINUES @ 2 MCG/MIN. 24 HOUR URINE COMPLETE-350 CC URINE OUTPUT SO FAR THIS SHIFT. LUNCH TRAY PROVIDED, BUT PT ONLY ATE 5% AND SHE CONTINUES TO REPORT POOR APPETITE.CALL LIGHT WITHIN REACH.
--- NOTE | 2022-07-08 13:45 | NUR ---
DR. BOLAÑOS IN TO SEE PT. UPDATE GIVEN. PLAN TO CONTINUE DOBUTREX OVER NIGHT AND CONTINUE ICU STATUS.
--- NOTE | 2022-07-08 16:00 | NUR ---
PT HAS BEEN RESTING QUIETLY WHEN NOT DISTURBED SINCE AFTER LUNCH. SHE AWAKEN EASILY TO VOICE AND IS A&O X4. PT DENIES PAIN OR SOB. ECG CONTINUES AFIB WITH RATE 110'S. SBP 90'S. DOBUTREX CONTINUES @ 2 MCG/MIN. LUNGS DIMINISHED R>L. SATS>90% ON RA. PT APPETITE REMAINS POOR, BUT SHE CONTINUES TO DENY NAUSEA. MONTANEZ OUTPUT IMPROVING. CALL LIGHT WITHIN REACH.
--- NOTE | 2022-07-08 17:23 | NUR ---
PT BOOSTED IN BED AND DINNER TRAY GIVEN. PT FAMILY AT BEDSIDE. NO NOTED DISTRESS-URINE OUTPUT 1050 SO FAR TODAY. PM DOSE OF ALBUMIN AND BUMEX GIVEN.
--- NOTE | 2022-07-08 19:04 | NUR ---
PT REPORTS GENERALIZED DISCOMFORT. PT STATES "I CAN'T GET COMFORTABLE IN THIS BED. I FEEL LIKE I'M IN A HOLE AND I CAN'T TAKE IT ANYMORE." PT BOOSTED IN BED. HIPS AND HEELS FLOATED. DR. REED MADE AWARE OF PT GENERAL DISCOMFORT AND ORDERS GIVEN. WILL INITIATE TRAMADOL WHEN AVAILABLE FROM PHARMACY.
--- NOTE | 2022-07-08 19:36 | NUR ---
Assumed care. Report received from dinh IRWIN. Pt resting in bed, A&O, on RA. Dobutamine infusing at 2 mcg/kg/min. Anne catheter in place. VS stable, no acute needs att, will continue to monitor.
[2022-07-09 03:34] LABS: BASOPHILS ABSOLUTE AUTO 0.01 K/mm3 (0.00-0.23); BASOPHILS PERCENT AUTO 0 % (0-2); EOSINOPHILS ABSOLUTE AUTO 0.05 K/mm3 (0.00-0.68); EOSINOPHILS PERCENT AUTO 1 % (0-6); Hematocrit 33.2 % (33.0-51.0); Hemoglobin 11.8 g/dL (11.5-16.0); IMMATURE GRAN ABSOLUTE AUTO 0.04 K/mm3 (0.00-0.10); IMMATURE GRAN PERCENT AUTO 1 % (0-1); LYMPHOCYTES ABSOLUTE AUTO 0.59 K/mm3 (0.84-5.20); LYMPHOCYTES PERCENT AUTO 7 % (21-46); MONOCYTES ABSOLUTE AUTO 0.56 K/mm3 (0.16-1.47); MONOCYTES PERCENT AUTO 7 % (4-13); Mean Corpuscular HGB 31.7 pg (26.0-34.0); Mean Corpuscular HGB Conc 35.5 g/dL (31.5-36.5); Mean Corpuscular Volume 89 fL (80-100); Mean Platelet Volume 9.5 fL (9.1-12.4); NEUTROPHILS ABSOLUTE AUTO 7.43 K/mm3 (1.96-9.15); NEUTROPHILS PERCENT AUTO 86 % (41-73); NRBC ABSOLUTE 0.02 K/mm3 (0.00-0.02); NRBC Auto 0.2 /100 WBC (0.0-0.2); Platelet Count 212 K/mm3 (150-400); RDW Coefficient Variation 15.7 % (11.7-14.2); RDW Standard Deviation 49.1 fL (35.1-46.3); Red Blood Cell Count 3.72 M/mm3 (3.80-5.20); White Blood Cell Count 8.68 K/mm3 (4.00-11.30)
[2022-07-09 03:43] LABS: Anion Gap 12 mmol/L (6-16); Blood Urea Nitrogen 60 mg/dL (8-24); Bun/Creatinine Ratio 17.9 (12.0-20.0); CO2, Blood 22 mmol/L (21-32); Calcium, Blood 7.9 mg/dL (8.5-10.1); Chloride, Blood 97 mmol/L (98-108); Creatinine, Blood 3.36 mg/dL (0.40-1.00); Glomerular Filtration Rate 13 (60-); Glucose, Blood 88 mg/dL (70-99); Magnesium, Blood 2.1 mg/dL (1.6-2.4); Phosphorus, Blood 3.4 mg/dL (2.5-4.9); Potassium, Blood 3.8 mmol/L (3.5-5.5); Sodium, Blood 131 mmol/L (136-145)
--- NOTE | 2022-07-09 06:29 | NUR ---
Shift summary. Pt rested in bed througout shift, no acute changes overnight. Dobutamine still infusing at 2 mcg/kg/min. 1200 mls urine out during shift. VS stable, see shift assessement for further details. Will continue to monitor and report off to dayshift RN.
--- NOTE | 2022-07-09 11:02 | NUR ---
0800- 1100 PATIENT WAS AWAKE IN BED ON PHONE UPON ARRIVAL TO ASSUME CARE THIS AM. SHE IS ALERT AND ORIENTED. SHE WAS RESPOSITIONED FOR COMFORT. SHE SLOWLY GOT DOWN HER PILLS THAT SHE REQUESTED BE CUT IN HALF EXCEPT THE ELOQUIS PILL. SHE ATE ONLY 30% OF HER MEAL FOR BREAKFAST THIS AM AND SHE WANTS WATER HOWEVER SHE IS PUT ON A FLUID RESTRICTION THIS AM OF 1500ML FOR THE DAY. NUTRITION CONSULT PUT IN ALONG WITH PHYSICAL THERAPY CONSULT. PATIENT WAS BATHED S/P DR AKILA'S THIS AM AND WITH 2 PERSON ASSIST SHE SLOWLY AMBULATED TO CHAIR. HER HEART RATE INCREASE WITH ACTIVITY AND SHE STATED SHE FELT DIZZY WHEN DANGLING AND STANDING. SHE IS UP IN CHAIR NOW HOWEVER. SHE IS STILL ON THE DOBUTAMINE DRIP AT 2MCG/KG/MIN AND WILL BE FOR ONE MORE DAY PER DR GENTILE. WILL CONTINUE TO MONITOR AND TREAT PATIENT PER ORDERS.
--- NOTE | 2022-07-09 18:25 | NUR ---
END OF SHIFT SUMMARY PATIENT HAS HAD A GOOD DAY. SHE WAS OUT OF BED TO CHAIR FOR 5 HRS TODAY. HER FAMILY HAS BEEN IN VISITING HER THROUGHOUT THE DAY. SHE WORKED WITH PT AND GOT SOME EDUCATIONAL FOOD SOURCES FROM THE DIETITIAN. SHE STILL HAS A POOR DIET BUT IS TRYING. SHE HAS NURSED HER WATER ALL DAY TO NOT GO OVER HER VOLUME OF FLUID IN FOR THE DAY. SHE IS CURRENTLY AT 700 ML IN FOR THE DAY ORALLY. HER DOBUTAMINE DRIP IS STILL GOING AT 2MG/KG/MIN AND WILL TILL DR SHERMAN SEE'S HER TOMORROW. WILL GIVE REPORT TO NEXT SHIFT TO RESUME CARE.
--- NOTE | 2022-07-09 18:57 | NUR ---
Assumed care. Report received from dinh RN. Pt resting in bed ATT, A&O, on room air. Dobutamine infusing at 2 mcg/kg/min. No acute needs at this time, VS stable, will continue to monitor.
[2022-07-10 03:58] LABS: Hematocrit 31.9 % (33.0-51.0); Hemoglobin 11.2 g/dL (11.5-16.0)
[2022-07-10 04:31] LABS: Albumin, Blood 3.1 g/dL (3.4-5.0); Albumin/Globulin Ratio 1.4 (0.8-1.8); Bilirubin, Total 1.1 mg/dL (0.1-1.0); Bun/Creatinine Ratio 16.9 (12.0-20.0); Calcium, Blood 8.1 mg/dL (8.5-10.1); Creatinine, Blood 3.37 mg/dL (0.40-1.00); Globulin, Blood 2.2 g/dL (2.2-4.0); Potassium, Blood 3.7 mmol/L (3.5-5.5); Total Protein, Blood 5.3 g/dL (6.4-8.2)
--- NOTE | 2022-07-10 06:30 | NUR ---
Shift summary. Pt rested in bed throughout shift. No acute events overnight, vs stable. Dobutamine infusing at 2 mcg/kg/min. 1200 mls urine out this shift. See shift assessment for further details. Will continue to monitor and report off to dayshift RN.
--- NOTE | 2022-07-10 09:21 | NUR ---
ASSUMED CARE REPORT FROM YUDI IRWIN AT 0700. PT RESTING IN BED. A&XO 4. STATES SHE IS FEELING BETTER. NO LONGER SOB. SPEAKING IN FULL SENTANCES. LUNGS CLEAR, RA. OCCASIONAL COUGH. AFIB, RATE 100-120'S ON MONITOR. BP STABLE. DOBUTAMINE GTT AT 2 MCG/MIN, ANTICIPATE D/C WHEN CARDIO ROUNDS. UP TO CHAIR. POOR APPETITE BUT DRANK ALL OF ENSURE. WILL CONTINUE TO MONITOR.
--- NOTE | 2022-07-10 18:00 | NUR ---
SHIFT SUMMARY DOBUTAMINE D/C'D THIS SHIFT. MAP REMAINED >65. METOPROLOL PO ADDED. AFIB ON MONITOR, RATE 100-110'S. DIURESED, 850 ML CLOUDY YELLOW URINE OUT. MONTANEZ PATENT, DRAINING TO GRAVITY. PT UP TO CHAIR FOR 4 HOURS. WORKED c PHYSICAL THERAPY. STATUS CHANGED TO PCU. NO OTHER ACUTE CHANGES THIS SHIFT. WILL CONTINUE TO MONITOR UNTIL REPORT TO ONCOMING NURSE.
[2022-07-11 03:29] LABS: Hematocrit 35.1 % (33.0-51.0); Hemoglobin 11.9 g/dL (11.5-16.0)
[2022-07-11 03:46] LABS: Albumin, Blood 3.4 g/dL (3.4-5.0); Anion Gap 11 mmol/L (6-16); Blood Urea Nitrogen 57 mg/dL (8-24); Bun/Creatinine Ratio 16.5 (12.0-20.0); CO2, Blood 27 mmol/L (21-32); Calcium, Blood 8.3 mg/dL (8.5-10.1); Chloride, Blood 94 mmol/L (98-108); Creatinine, Blood 3.45 mg/dL (0.40-1.00); Glomerular Filtration Rate 13 (60-); Glucose, Blood 108 mg/dL (70-99); Magnesium, Blood 2.1 mg/dL (1.6-2.4); Phosphorus, Blood 4.1 mg/dL (2.5-4.9); Sodium, Blood 132 mmol/L (136-145)
--- NOTE | 2022-07-11 05:22 | NUR ---
PT. DID WELL OVERNIGHT, SATTING ABOVE 92% ON RA, BP HAS BEEN WNL AND STABLE, HR OF LOW 100S AFIB RHYTHM. MONTANEZ IS PATENT AND DRAININ, UOP OF 550 OVERNIGHT. ASIDE FROM BACK AND LEG PAIN FROM LAYING IN BED, PT. HAS NO COMPLAINTS AT THIS TIME.
--- NOTE | 2022-07-11 14:35 | NUR ---
Call placed to hospitalist team, spoke to Dr Holman, to discuss that patient has not had a BM in 7 days. Also notified provider that pt requests sleep aid, reporting that she has not slept for more than "an hour here and there" at night.
--- NOTE | 2022-07-11 14:43 | NUR ---
Pt resting in bed upon arrival. Reviewed plan of care with Pt being in agreement. Listened as Pt reports being and having adult children that live out of the area. Pt reports little support at home as spouse tends to rely on her for cooking and cleaning. Engaged in therapeutic conversation regarding advanced care planning. Gentle education on disease process including trajectory and the importance of planning for the future. Discussed wishes for code status. Educated on life sustaining treatments including risk factors and implications of CPR. Pt reports wishes for now are Full Code. Offered active listening and answered questions. Pt expresses appreciation and reports no concerns at this time. Palliative Care will remain available.
--- NOTE | 2022-07-11 16:46 | NUR ---
Call placed to hospitalist team, spoke to Gaby Holman, to notify that pt has foul smelling urine. Cloudy and son in appearance. Catheter placed 07/06. No urinalysis has been done yet this admission.
[2022-07-11 17:01] LABS: Source, Urine Foley catheter
[2022-07-11 17:04] LABS: Appearance, Urine Hazy (Clear); Bilirubin, Urine Neg (Neg); Blood, Urine 5+ (Neg); Color, Urine Yellow (P-Yellow); Glucose Qualitative, Urine Neg (Neg); Ketones, Urine Neg (Neg); Leukocyte Esterase, Urine 3+ (Neg); Nitrite, Urine Pos (Neg); Protein, Urine 2+ (Neg); Urobilinogen, Urine NORM (Normal)
[2022-07-11 17:51] LABS: Red Blood Cells, Urine 25-50 /hpf (0-2)
[2022-07-11 17:52] LABS: Bacteria Many /hpf; Hyaline Casts 0-2 /lpf (0-2); Squamous Epithelial Cells Many /hpf (Few); Transitional Epithelial Cells Rare /hpf (0-Rare); WBC Cast 0-2 /lpf (0)
--- NOTE | 2022-07-11 18:32 | NUR ---
SUMMARY PCU status patient. Pt A&O x 4. Answers questions, follows commands, verbalizes needs. Pleasant and cooperative with care. Patient worked with physical therapy today and sat up in chair for several hours. SpO2 90% or greater with room air. AFIB per monitor with rate 90-105. BP stable. Poor appetite. Has not had BM in several days. Doctor aware, new bowel care meds started. Pt has painter catheter. Foul smelling urine noted on emptying. Dr Holman aware. Order given for urinalysis.
[2022-07-12 03:57] LABS: Hematocrit 36.2 % (33.0-51.0); Hemoglobin 12.2 g/dL (11.5-16.0)
[2022-07-12 04:41] LABS: Albumin, Blood 3.5 g/dL (3.4-5.0); Anion Gap 11 mmol/L (6-16); Blood Urea Nitrogen 63 mg/dL (8-24); Bun/Creatinine Ratio 18.4 (12.0-20.0); CO2, Blood 27 mmol/L (21-32); Calcium, Blood 8.4 mg/dL (8.5-10.1); Chloride, Blood 93 mmol/L (98-108); Creatinine, Blood 3.43 mg/dL (0.40-1.00); Glomerular Filtration Rate 13 (60-); Glucose, Blood 117 mg/dL (70-99); Magnesium, Blood 2.2 mg/dL (1.6-2.4); Potassium, Blood 3.7 mmol/L (3.5-5.5); Sodium, Blood 131 mmol/L (136-145)
--- NOTE | 2022-07-12 04:47 | NUR ---
SHIFT SUMMARY PT TO PCU FROM ICU AROUND 2149. ASSUMMED CARE AT THIS TIME. PT AXO. VSS. ON RA. AFIB WITH BBB. MONTANEZ PATENT, DRAINING. DIURESING WELL. PT MAINTAINING WITHIN FLUID RESTRICTION OF 1.5L. PT COOPERATIVE WITH CARE. PLEASANT. AND OTHERWISE HAS BEEN RESTING QUIETELY.
--- NOTE | 2022-07-12 15:45 | NUR ---
SHIFT SUMMARY: AFIB PATIENT IS A&OX4. VS ARE WNL AND IS ON RA. [employer] REPORTS AFIB WITH BBB WITH HER HR IN THE 80'S. HR WILL SLIGHTLY INCREASE TO THE 100'S WITH AMBULATION. PATIENT DENIES CHEST PALPATATIONS OR CHEST PAIN WHEN THIS HAPPENS. MONTANEZ IS PATENT AND DRAINING PER GRAVITY WITH YELLOW URINE. PATIENT IS TOLERATING HER 1.5L RESTRICTION WELL. PATIENT IS ALSO TOLERATING PO INTAKE WITH NO NAUSEA OR VOMITING. SHE IS A SBA WITH FWW AND GAIT BELT. PATIENT HAS BEEN INTERMITTENTLY NAPPING THROUGHOUT THE DAY. CALLS APPROPRIATELY. CALL LIGHT WITHIN REACH. THE PLAN IS TO DISCHARGE TO SNF ONCE KIDNEY LABS ARE IMPROVING.
[2022-07-13 03:39] LABS: Hematocrit 34.5 % (33.0-51.0); Hemoglobin 11.8 g/dL (11.5-16.0)
[2022-07-13 03:57] LABS: Albumin, Blood 3.5 g/dL (3.4-5.0); Anion Gap 12 mmol/L (6-16); Blood Urea Nitrogen 70 mg/dL (8-24); CO2, Blood 27 mmol/L (21-32); Calcium, Blood 8.9 mg/dL (8.5-10.1); Chloride, Blood 94 mmol/L (98-108); Creatinine, Blood 3.68 mg/dL (0.40-1.00); Glomerular Filtration Rate 12 (60-); Glucose, Blood 136 mg/dL (70-99); Magnesium, Blood 2.2 mg/dL (1.6-2.4); Phosphorus, Blood 3.5 mg/dL (2.5-4.9); Potassium, Blood 3.7 mmol/L (3.5-5.5); Sodium, Blood 133 mmol/L (136-145)
--- NOTE | 2022-07-13 05:59 | NUR ---
NOC SHIFT SUMMARY PT SLEPT WELL OVERNIGHT, CALM AND COOPERATIVE. COMPLAINTS OF LOW BACK PAIN AT START OF SHIFT RELIEVED BY AVAILABLE PRNS. AFIB/BBB ON TELEMETRY. VSS PER PT TREND. ORIENTED X4, GENERALIZED WEAKNESS. ALUTIIQ. COMPLAINTS OF VAGINAL DISCOMFORT AND SOME DISCHARGE NOTED. MONTANEZ WITH CLOUDY SEDIMENTOUS URINE. WILL CONTINUE TO MONITOR AND PASS ON TO DAY RN
--- NOTE | 2022-07-13 07:09 | NUR ---
ASSUMED CARE: PT RESTING QUIETLY IN BED, RA. LEACH ON TELE IN THE 90S. NO ACUTE NEEDS OR CONCERNS AT THIS TIME.
--- NOTE | 2022-07-13 07:10 | NUR ---
ASSUMED CARE: PT USING COMMODE AT THIS TIME. AFIB 109. RA, NO ACUTE NEEDS AT THIS TIME.
--- NOTE | 2022-07-13 09:38 | NUR ---
DISCUSSED PT'S CASE WITH DR CONNOLLY. ASKED IF WE WANTED NEPHROLOGY CONSULT. DR STATED HE WOULD LOOK INTO IT WITH DR VASQUES. PT NO MED WITH TELE STATUS
--- NOTE | 2022-07-13 10:22 | NUR ---
CALL TO DR CONNOLLY TO RELAY POSITIVE URINE CULTURE. STATED HE WOULD REVIEW SENSITIVITIES FOR ORDERS
--- NOTE | 2022-07-13 13:30 | NUR ---
call to dr singer regarding abx. states they will recheck cbc tomorrow but if pt remains asymptomatic they will not treat positive ua
--- NOTE | 2022-07-13 14:12 | NUR ---
REPORT GIVEN TO NIRAV IRWIN. REPORTED THAT PT HAS WORSENING KIDNEY FUNCTION AND THAT CBC SHOULD BE DONE TOMORROW TO VERIFY WBC. ALSO AWARE OF BLADDER TRAINING AND THAT PT IS CURRENTLY CLAMPED. TRANSFERRED VIA WHEEL CHAIR BY HOSPITAL STAFF.
--- NOTE | 2022-07-13 18:30 | NUR ---
SHIFT SUMMARY PT ARRIVED FROM PCU AT 1430. SHE DENIES PAIN OR SOB. HR AFIB AT 93. SHE IS ALERT AND ORIENTED. NO NOTED SKIN ISSUED. PT WILL MOST LIKELY DISCHARGE TOMORROW. BED IN LOWEST POSITION AND CALL LIGHT IN REACH
--- NOTE | 2022-07-14 04:42 | NUR ---
SHIFT SUMMARY NO ACUTE CHANGES TO PT CONDITION. PT SLEEPING OFF AND ON THROUGHOUT THE NIGHT. CALL LIGHT WITHIN REACH. PT HAS NO COMPLAINTS AT THIS TIME.
[2022-07-14 05:33] LABS: BASOPHILS ABSOLUTE AUTO 0.04 K/mm3 (0.00-0.23); BASOPHILS PERCENT AUTO 1 % (0-2); EOSINOPHILS ABSOLUTE AUTO 0.16 K/mm3 (0.00-0.68); EOSINOPHILS PERCENT AUTO 2 % (0-6); Hematocrit 35.3 % (33.0-51.0); Hemoglobin 11.9 g/dL (11.5-16.0); IMMATURE GRAN ABSOLUTE AUTO 0.02 K/mm3 (0.00-0.10); IMMATURE GRAN PERCENT AUTO 0 % (0-1); LYMPHOCYTES ABSOLUTE AUTO 0.96 K/mm3 (0.84-5.20); LYMPHOCYTES PERCENT AUTO 14 % (21-46); MONOCYTES ABSOLUTE AUTO 0.61 K/mm3 (0.16-1.47); MONOCYTES PERCENT AUTO 9 % (4-13); Mean Corpuscular HGB Conc 33.7 g/dL (31.5-36.5); Mean Corpuscular Volume 92 fL (80-100); NEUTROPHILS ABSOLUTE AUTO 5.02 K/mm3 (1.96-9.15); NEUTROPHILS PERCENT AUTO 74 % (41-73); Platelet Count 106 K/mm3 (150-400); RDW Standard Deviation 52.9 fL (35.1-46.3); Red Blood Cell Count 3.84 M/mm3 (3.80-5.20); White Blood Cell Count 6.81 K/mm3 (4.00-11.30)
[2022-07-14 05:52] LABS: Albumin, Blood 3.3 g/dL (3.4-5.0); Anion Gap 10 mmol/L (6-16); Blood Urea Nitrogen 75 mg/dL (8-24); Bun/Creatinine Ratio 19.2 (12.0-20.0); CO2, Blood 28 mmol/L (21-32); Calcium, Blood 8.5 mg/dL (8.5-10.1); Chloride, Blood 94 mmol/L (98-108); Creatinine, Blood 3.91 mg/dL (0.40-1.00); Glomerular Filtration Rate 11 (60-); Glucose, Blood 90 mg/dL (70-99); Magnesium, Blood 2.3 mg/dL (1.6-2.4); Phosphorus, Blood 3.6 mg/dL (2.5-4.9); Potassium, Blood 3.8 mmol/L (3.5-5.5); Sodium, Blood 132 mmol/L (136-145)
--- NOTE | 2022-07-14 16:16 | NUR ---
SHIFT SUMMARY PT RESTING QUIETLY AT START OF SHIFT. WOKE FOR BS REPORT, REQUESTING TO BE REPOSITIONED. MONTANEZ TO GRAVITY; PATENT AND DRAINING BROWN COLORED URINE. DR VASQUES AND LATER DR HARRY IN TO SEE PT. MONTANEZ TO BE D/C'D TOMORROW; BLADDER TRAINING CONTINUES. PT UP TO BSC FOR BM; UNSUCCESSFUL. PT THEN UP TO CHAIR FOR BED BATH AND LUNCH, REMAINING IN CHAIR UNTIL AFTER LUNCH. PT IS WEAK AND DECONDITIONED, NOT WANTING TO GET OOB OR WALK AT ALL. PT ENCOURAGED TO GET UP TO CHAIR FOR MEALS AT LEAST. C/O MID BACK PAIN THIS AFTERNOON; MEDICATED PER EMAR. PT'S IN TO VISIT. DENIED FURTHER NEEDS AT THIS TIME. CALL LT IN REACH.
--- NOTE | 2022-07-15 03:52 | NUR ---
SHIFT SUMMARY BLADDER TRAINING CONTINUES. PT COMPLAINED OF NOT BEING ABLE TO SLEEP, GIVEN MELATONIN PER EMAR. CALL LIGHT IS WITHIN HER REACH.
[2022-07-15 04:39] LABS: Hematocrit 34.5 % (33.0-51.0); Hemoglobin 11.4 g/dL (11.5-16.0)
[2022-07-15 04:59] LABS: Albumin, Blood 3.4 g/dL (3.4-5.0); Anion Gap 11 mmol/L (6-16); Blood Urea Nitrogen 81 mg/dL (8-24); Bun/Creatinine Ratio 19.9 (12.0-20.0); CO2, Blood 26 mmol/L (21-32); Calcium, Blood 8.8 mg/dL (8.5-10.1); Chloride, Blood 94 mmol/L (98-108); Creatinine, Blood 4.08 mg/dL (0.40-1.00); Glomerular Filtration Rate 11 (60-); Glucose, Blood 97 mg/dL (70-99); Magnesium, Blood 2.3 mg/dL (1.6-2.4); Phosphorus, Blood 3.5 mg/dL (2.5-4.9); Sodium, Blood 131 mmol/L (136-145)
--- NOTE | 2022-07-15 15:49 | NUR ---
SHIFT SUMMARY PT AWAKE THIS AM AND APPEARED TO FELL A LITTLE BETTER TODAY. UP TO CHAIR FOR BREAKFAST AND MEALS, REMAINING FOR LONGER TIME. PT LATER ASSISTED TO SHOWER CHAIR AND TAKEN INTO SHOWER, BUT WATER NOT HOT ENOUGH, SO CHAIR BATH GIVEN AND LINEN CHANGE AGAIN TODAY. MONTANEZ TO GRAVITY REMAINS PATENT, BUT CONTINUES TO DRAIN BROWN/MAROON COLOR URINE. DR ZENG AND DR CERON BOTH IN TO SEE PT THIS AM. CONSULT TO DR CARBONE STILL UNABLE TO BE CALLED NO ONE KENO WRITER/RUNNER UNTIL Jun. SEVERAL VISITORS IN TO SEE PT TODAY. NO C/O PAIN. PT SEEMED TO FEEL BETTER TODAY, APPEARED TO BE MORE COMFORTABLE AND NOT NEEDY BEING MISERABLE SHE WAS YESTERDAY AND LAST NIGHT. CALL LT IN REACH. ABLE TO MAKE NEEDS KNOWN.
[2022-07-16 05:40] LABS: Hematocrit 35.1 % (33.0-51.0); Hemoglobin 11.8 g/dL (11.5-16.0)
[2022-07-16 06:06] LABS: Magnesium, Blood 2.2 mg/dL (1.6-2.4)
[2022-07-16 06:07] LABS: Albumin, Blood 3.7 g/dL (3.4-5.0); Albumin/Globulin Ratio 1.5 (0.8-1.8); Bilirubin, Total 1.3 mg/dL (0.1-1.0); Bun/Creatinine Ratio 18.9 (12.0-20.0); Calcium, Blood 9.1 mg/dL (8.5-10.1); Creatinine, Blood 4.34 mg/dL (0.40-1.00); Globulin, Blood 2.5 g/dL (2.2-4.0); Phosphorus, Blood 3.7 mg/dL (2.5-4.9); Potassium, Blood 4.2 mmol/L (3.5-5.5); Total Protein, Blood 6.2 g/dL (6.4-8.2)
--- NOTE | 2022-07-16 16:19 | NUR ---
SHIFT SUMMARY PT AWAKE AT START OF SHIFT TODAY. PT NOT FEELING OR LOOKING WELL TODAY. MONTANEZ TO GRAVITY PATENT AND DRAINING MAROON COLORED URINE. UP TO CHAIR AT BS A COUPLE OF TIMES. UP TO BSC THIS AFTERNOON FOR SM BM. PT HAS BEEN NPO FOR POSSIBLE PERMA CATH PLACEMENT. CONSULT CALLED TO DR Green'S OFFICE TWICE TODAY. STAFF LATER TO TO SEE PT AND OBTAIN CONSENT. PT WAITED UNTIL IR STAFF CAME TO GET HER TO DECIDE THAT SHE NEEDED MORE INFORMATION ABOUT DIALYSIS BEFORE HAVING PERMA CATH PLACED. PT NOT WANTING TO TALK TO DR TAI. DR ZENG NOTIFIED AND THEN DR DIANA WHO CAME TO TO TALK WITH PT AND FOR A VERY LONG PERIOD OF TIME, ANSWERING ALL OF PT'S QUESTIONS SEVERAL TIMES. PT DECIDING ON POSSIBLE PERMA CATH PLACEMENT TOMORROW. PT TO BE ALLOWED TO EAT DINNER TONIGHT AND THEN NPO AT SD. REQUESTING WATER AT THIS TIME. DENIES FURTHER NEEDS. CALL LT IN REACH.
[2022-07-17 04:55] LABS: Hematocrit 35.3 % (33.0-51.0); Hemoglobin 11.8 g/dL (11.5-16.0)
[2022-07-17 05:13] LABS: Magnesium, Blood 2.5 mg/dL (1.6-2.4)
[2022-07-17 05:14] LABS: Albumin/Globulin Ratio 1.7 (0.8-1.8); Bilirubin, Total 1.5 mg/dL (0.1-1.0); Bun/Creatinine Ratio 17.8 (12.0-20.0); Calcium, Blood 9.7 mg/dL (8.5-10.1); Creatinine, Blood 4.73 mg/dL (0.40-1.00); Globulin, Blood 2.4 g/dL (2.2-4.0); Phosphorus, Blood 4.5 mg/dL (2.5-4.9); Potassium, Blood 5.1 mmol/L (3.5-5.5); Total Protein, Blood 6.4 g/dL (6.4-8.2)
--- NOTE | 2022-07-17 18:29 | NUR ---
SHIFT SUMMARY IN BEGINNING OF SHIFT, PT LETHARGIC AND INTERMITTENT PERIODS OF CONFUSION. PT RESPONDING AND ANSWERING QUESTIONS HOWEVER NOT ALL RESPONSES WERE APPROPRIATE. FAMILY AT BEDSIDE. EDUCATION AND UPDATE PROVIDED. VSS; HR IN 90'S, SBP 120'S, O2 >95% ON RA. MONTANEZ IN PLACE AND DRAINING TO GRAVITY; BURGUNDY/PURPLE URINE W/SCANT SEDIMENT. MINIMAL URINE OUTPUT. PT TO [facility] [place] FOR PERM CATH PLACEMENT AND TO DIALYSIS AFTER PROCEDURE COMPLETE. UPON RETURN FROM DIALYSIS, PT MUCH MORE AWAKE AND ORIENTED. PT SMILING AND ENGAGING IN CONVERSATION, STATES "SHE FEELS MUCH BETTER". PT ATE DINNER AND NOW RESTING IN BED. CALL LIGHT WITHIN REACH AND BED IN LOWEST POSITION. CALLED IN AM TO CLARIFY LASIX AND ALBUMIN ORDERS. NEW ORDER TO DC ALBUMIN AND TO ORDER BUMEX DAILY, 2MG. IV LASIX WERE ALREADY DC'D PRIOR TO CALLING .
--- NOTE | 2022-07-18 04:36 | NUR ---
SOCIAL MEDIA EXECUTIVE SUMMARY PT LETHARGIC/DROWSY IN THE EVENING AND SLEPT ITERMITTENTLY T/O THE NIGHT. PT A/OX3-4 W/PERIODIC EPISODES OF CONFUSION. MONTANEZ CATH IN PLACE, DRAIN TO GRAVITY, AND PATENT; URINE IS BURGUNDY W/SEDIMENT AND LITTLE OUTPUT. PT REQ MEDS F/SLEEP; GAVE MELATONIN P/EMAR; PT REPORTS HAVING NIGHTMARES WHEN SHE TAKES MELATONIN. PT C/O OF PAIN IN HER PERMACATH SITE; ULTRAM P/EMAR. PT ON TELE; AFIB W/RATE IN THE 90'S; ROADWAY DESIGNER REPORTED ONE RUN OF 9 PVC'S AT 2224. NOTED BLANCHABLE REDNESS ON BILATERAL HEELS; HEEL/BOOT PROTECTORS PUT IN PLACE. CALL LIGHT IN REACH.
[2022-07-18 05:10] LABS: Hematocrit 33.2 % (33.0-51.0)
[2022-07-18 05:37] LABS: Albumin, Blood 3.4 g/dL (3.4-5.0); Anion Gap 11 mmol/L (6-16); Blood Urea Nitrogen 59 mg/dL (8-24); CO2, Blood 28 mmol/L (21-32); Calcium, Blood 8.7 mg/dL (8.5-10.1); Chloride, Blood 92 mmol/L (98-108); Creatinine, Blood 3.69 mg/dL (0.40-1.00); Glomerular Filtration Rate 12 (60-); Glucose, Blood 90 mg/dL (70-99); Magnesium, Blood 2.3 mg/dL (1.6-2.4); Phosphorus, Blood 3.6 mg/dL (2.5-4.9); Potassium, Blood 4.4 mmol/L (3.5-5.5); Sodium, Blood 131 mmol/L (136-145)
[2022-07-18 08:10] LABS: HBSAG SCREEN Negative (Negative); HCV AB <0.1 (0.0-0.9); HEP A AB, IGM Negative (Negative); HEP B CORE AB, IGM Negative (Negative)
--- NOTE | 2022-07-18 17:44 | NUR ---
SHIFT SUMMARY PATIENT MEDICATED X1 FOR PAIN, DENIES NAUSEA AND SHORTNESS OF BREATH. PATIENT IS A 1P ASSIST WITH A FWW. PATIENT WORKED WITH PT TODAY. PATIENT UP IN CHAIR FOR MEALS. PATIENT HAD DIALYSIS IN THE ROOM THIS MORNING. LISSETH WAS SHIVA'D AT SHIFT CHAGE THIS AM, PATIENT VOIDED SMALL AMOUNTS OF RED COLORED URINE X2 THIS SHIFT. PATIENT IS EATING AND DRINKING WELL. PATIENT IS PLEASANT AND COOPERATIVE WITH CARE. PLAN IS FOR PATIENT TO DC TO [facility] TOMORROW, PATIENT HAS INTAKE AT [facility] FOR OUTPATIENT DIALYSIS AT 1400.
--- NOTE | 2022-07-19 03:39 | NUR ---
SUPERVISOR COIL WINDING SUMMARY PT UP TO CHAIR AT SHIFT CHANGE; 1PA ASSIST W/FWW BACK TO BED; PT CONT TO REPORT PAIN W/PERM CATH; NO SIGNS OF INFECTION NOTED; MED P/EMAR. PT T/BSC 1X DURING SHIFT; LITTLE URINE OUTPUT, BURGUNDY/RED W/SEDIMENT. SKIN ON BACK/MIRELLA PROMINENCE RED/BLANCHABLE; APPLIED MEPILEX. HEEL PROTECTORS IN PLACE T/O SHIFT. PT ON FLUID RESTRICTION 1500/DAY, 500/NIGHT. TELE IS TRANSMITTING; AFIB W/HR 80-90. REORIENTED PT TO SITUATION/DICHARGE PLAN F/DAVITA INTAKE AND [place] ON 07/19/22. PERIODIC CONFUSION/FORGETFULLNESS. PT CALL IN REACH; USES LIGHT F/ASSISTANCE.
[2022-07-19 05:07] LABS: Hematocrit 32.2 % (33.0-51.0); Hemoglobin 10.8 g/dL (11.5-16.0)
[2022-07-19 05:43] LABS: Albumin, Blood 3.2 g/dL (3.4-5.0); Albumin/Globulin Ratio 1.2 (0.8-1.8); Bilirubin, Total 1.1 mg/dL (0.1-1.0); Bun/Creatinine Ratio 13.7 (12.0-20.0); Calcium, Blood 8.7 mg/dL (8.5-10.1); Creatinine, Blood 2.93 mg/dL (0.40-1.00); Globulin, Blood 2.6 g/dL (2.2-4.0); Magnesium, Blood 2.2 mg/dL (1.6-2.4); Phosphorus, Blood 2.5 mg/dL (2.5-4.9); Potassium, Blood 3.9 mmol/L (3.5-5.5); Total Protein, Blood 5.8 g/dL (6.4-8.2)
[2022-07-19 07:02] LABS: Influenza A, PCR NEGATIVE (NEGATIVE); Influenza B, PCR NEGATIVE (NEGATIVE); Resp Syncytial Virus, PCR NEGATIVE (NEGATIVE); SARS-Cov-2 (COVID-19) PCR, MMC NEGATIVE (NEGATIVE)
[2022-07-19 07:11] LABS: HBSAG SCREEN Negative (Negative); HCV AB <0.1 (0.0-0.9); HEP A AB, IGM Negative (Negative); HEP B CORE AB, IGM Negative (Negative); HEP B CORE AB, TOT Negative (Negative)
[2022-07-19] MEDS ORDERED: BUME2 PO (11:32)
[2022-07-19] MEDS ORDERED: Acetaminophen650 M1 PO (11:33)
[2022-07-19] MEDS ORDERED: METO50ER PO (11:35)
--- NOTE | 2022-07-19 14:24 | NUR ---
SHIFT SUMMARY PATIENT TRANSPORTED VIA WHEELCHAIR BY [facility] AT 1330. PATIENT TO [facility] FOR INTAKE APPT AT 1400. PATIENT THEN GOING TO [facility]. DISCHARGE INSTRUCTIONS FAXED TO [facility]. MEDICATIONS FAXED TO [facility]. BELONGINGS SENT WITH PATIENT. IV REMOVED WITHOUT DIFFICULTY. TELE REMOVED WITHOUT DIFFICULTY. TB TEST ON RIGHT FOREARM, 24HR READ AND DOCUMENTED. REPORT CALLED TO SLY KAMARA NURSE AT [facility]. INFORMED HER OF NEED TO READ THE TB TEST ON FRIDAY.
== END 2022-07-19 13:48 | DRG 291 ==
LOC: ER 08:32 → ERHOLD 08:33 → MEDS 12:39 → ERHOLD 12:39 → ICUE 12:39 → ICUW 12:39 → ICUE 17:26 → PCU 07-11 22:00 → MEDS 07-13 14:12
PROVIDERS: Emergency Medicine; Family Medicine; Internal Medicine; Internal Medicine Nephrology; ADMIT Hospitalist
PROC: 3E033XZ Introduction of Vasopressor into Peripheral Vein, Percutaneous Approach (ICD-10-PCS; 2022-07-06)
PROC: 0JH63XZ Insertion of Tunneled Vascular Access Device into Chest Subcutaneous Tissue and Fascia, Percutaneous Approach (ICD-10-PCS; principal; 2022-07-17)
PROC: 02HV33Z Insertion of Infusion Device into Superior Vena Cava, Percutaneous Approach (ICD-10-PCS; 2022-07-17)
PROC: B518ZZZ Fluoroscopy of Superior Vena Cava (ICD-10-PCS; 2022-07-17)
PROC: B548ZZA Ultrasonography of Superior Vena Cava, Guidance (ICD-10-PCS; 2022-07-17)
PROC: 5A1D70Z Performance of Urinary Filtration, Intermittent, Less than 6 Hours Per Day (ICD-10-PCS; 2022-07-17)
DX: I13.2 Hypertensive heart and chronic kidney disease with heart failure and with stage 5 chronic kidney disease, or end stage renal disease (principal); I50.23 Acute on chronic systolic (congestive) heart failure; K72.00 Acute and subacute hepatic failure without coma; R57.0 Cardiogenic shock; N18.6 End stage renal disease; N17.0 Acute kidney failure with tubular necrosis; N39.0 Urinary tract infection, site not specified; Z66 Do not resuscitate; E87.2 Acidosis; Z20.822 Contact with and (suspected) exposure to COVID-19; E87.1 Hypo-osmolality and hyponatremia; N25.81 Secondary hyperparathyroidism of renal origin; K59.00 Constipation, unspecified; R77.8 Other specified abnormalities of plasma proteins; I48.0 Paroxysmal atrial fibrillation; B96.20 Unspecified Escherichia coli [E. coli] as the cause of diseases classified elsewhere; B95.5 Unspecified streptococcus as the cause of diseases classified elsewhere; R09.02 Hypoxemia; D63.1 Anemia in chronic kidney disease; E87.70 Fluid overload, unspecified; E87.5 Hyperkalemia; E88.09 Other disorders of plasma-protein metabolism, not elsewhere classified; Z79.02 Long term (current) use of antithrombotics/antiplatelets; Z87.891 Personal history of nicotine dependence; Z86.73 Personal history of transient ischemic attack (TIA), and cerebral infarction without residual deficits; Z79.01 Long term (current) use of anticoagulants; Z99.2 Dependence on renal dialysis; Z79.899 Other long term (current) drug therapy; Z98.890 Other specified postprocedural states; Z88.2 Allergy status to sulfonamides; Z79.891 Long term (current) use of opiate analgesic
CPT/HCPCS: 0241U; 36415; 36558; 51702; 71045; 71260; 76937; 77001; 80048; 80053; 80069; 80074; 81001; 82947; 83605; 83735; 83880; 84100; 84156; 84484; 85014; 85018; 85025; 85610; 85730; 86317; 86704; 86708; 86803; 87077; 87086; 87186; 87340; 93005; 93010; 93308; 93321; 96374-59; 96375-59; 97110; 97112; 97116; 97162; 97530; 99152; 99153; 99285-25; A9270; C1750; C1769; C1894; J0282; J0696; J1200; J1250; J1644; J1940; J2250; J2405; J3010; J7040; J7050; J7060; P9047; Q9967